=== PATIENT | male | born 1965 | race African-American/Black ===

== ENCOUNTER 2025-04-25 14:14 | Outpatient (REF) | payer MEDICARE, SELFPAY ==
--- OUTSIDE RECORDS SUMMARY | 2025-04-25 15:08 | XMS_ITS | Encounter Summary ---
Author Organization [employer] Address [address] [place] [address] Care Team Providers Care Classified Copy Control Clerk Name Role Phone Name, Rolando LOZANO Primary Care Provider [phone] Encounter Details Date Type Department Care Team (Latest Contact Info) Description 04/25/2025 Travel Social History Tobacco Use Types Packs/Day Years Used Date Smoking Tobacco: Former Cigarettes Passive Smoke Exposure: Past Smokeless Tobacco: Former Alcohol Use Standard Drinks/Week Comments Not Currently 0 (1 standard drink = 0.6 oz pur e alcohol) Depression Answer Date Recorded Patient Health Questionnaire-9 Score 0 04/25/2025 Patient Health Questionnaire-9 Score 0 04/25/2025 Last PHQ-9: Questionnaire Data Not on file 0 04/25/2025 Housing Stability Answer Date Recorded What is your housing situation today? I have myrna robbins 04/25/[address] you li ve. Do you have problems with any of the following? None of the above 04/25/2025 Food Insecurity Answer Date Recorded Within the past 12 months, y ou worried that your food would run out before you got money to buy more: Never True 04/25/2025 Within the past 12 months,th e food you bought just didn't last and you didn't have enough money to get more: Never True Transportation Answer Date Recorded In the past 12 months, has l ack of transportation kept you from medical appts, meetings, work or from getting things needed for daily living? No 04/25/2025 Utilities Answer Date Recorded In the past 12 months, has t he electric, gas, oil or water company threatened to shut off services in your home? No 04/25/2025 Depression Answer Date Recorded Patient Health Questionnaire-2 Score 0 04/25/2025 Internet Access Answer Date Recorded Internet Access Q1 Yes 04/25/2025 Internet Access Q2 Not on file 04/25/2025 Sex and Gender Information Value Date Recorded Sex Assigned at Male 12/17/2024 1:31 PM EDT Legal Sex Male 1:31 PM EDT Gender Identity Male 12/17/2024 1:31 PM EDT Sexual Orientation Straight 04/21/2025 3: 57 PM EDT documented as of this encounter Functional Status * Over the past 2 weeks, how often have you been bothered by any of the following problems? Question Answer Date of Assessment Author Patient Health Questionnaire -2 Score 0 04/25/2025 1:48 PM EDT Stefania Nino MA * Little interest or pleasure in doing things Answer Date of Assessment Author Not at all 04/25/2025 1:48 PM EDT Stefania Styles MA * Feeling down, depressed, or hopeless Answer Date of Assessment Author Not at all 04/25/2025 1:48 PM EDT Stefania Styles MA * Trouble falling or staying asleep, or sleeping too much Answer Date of Assessment Author Not at all 04/25/2025 1:48 PM EDT Stefania Styles MA * Feeling tired or having little energy Answer Date of Assessment Author Not at all 04/25/2025 1:48 PM EDT Stefania Styles MA * Poor appetite or overeating Answer Date of Assessment Author Not at all 04/25/2025 1:48 PM EDT Stefania Styles MA * Feeling bad about yourself - or that you are a failure or have let yourself or your family down Answer Date of Assessment Author Not at all 04/25/2025 1:48 PM EDT Stefania Styles MA * Trouble concentrating on things, such as reading the newspaper or watching television Answer Date of Assessment Author Not at all 04/25/2025 1:48 PM EDT Stefania Styles MA * Moving or speaking so slowly that other people could have noticed? Or the opposite - being so fidgety or restless that you have been moving around a lot more than usual. Answer Date of Assessment Author Not at all 04/25/2025 1:48 PM EDT Stefania Styles MA * Thoughts that you would be better off or hurting yourself in some way Answer Date of Assessment Author Not at all 04/25/2025 1:48 PM EDT Stefania Styles MA * Patient Health Questionnaire-9 Score Answer Date of Assessment Author 0 04/25/2025 1:48 PM EDT Stefania Styles MA * Over the last 2 weeks, how often have you been bothered by any of the following problems? Question Answer Date of Assessment Author Feeling nervous, anxious, or on edge 0 04/25/2025 1:48 PM EDT Stefania Nino MA Not being able to stop or control worrying 0 04/25/2025 1:48 PM EDT Stefania Nino MA Worrying too much about different things 0 04/25/2025 1:48 PM EDT Stefania Nino MA Trouble relaxing 0 04/25/2025 1:48 PM EDT Stefania Johns MA Being so restless that it is hard to sit still 0 04/25/2025 1:48 PM EDT Stefania Nino MA Becoming easily annoyed or irritable 0 04/25/2025 1:48 PM EDT Stefania Nino MA Feeling afraid as if somethi ng awful might happen 0 04/25/2025 1:48 PM EDT Stefania Nino MA OLIVIA-7 Total Score 0 04/25/2025 1:48 PM EDT Stefania Nino MA documented as of this encounter Plan of Treatment Not on file documented as of this encounter Visit Diagnoses Not on filedocumented in this encounter Additional Health Concerns Assessment Noted Time PHQ-9 Depression Total Score: 0 04/25/20 1:48 PM EDT documented as of this encounter Care Teams Classified Copy Control Clerk Relationship Specialty Start Date End Date Name, MD [address] [place] [address] PCP - General Internal Medicine 04/25/25 documented as of this encounter
[2025-04-25 16:15] LABS: MANUAL DIFF FLAG NO
[2025-04-25 16:23] LABS: Hematocrit 40.6 % (42.0-52.0); Hemoglobin 13.3 g/dl (14.0-18.0); Imm Gran Abs Auto 0.01 X10*3/uL (0.00-0.03); Imm Gran Pct Auto 0.2 % (0.0-0.4); Lymphocytes Absolute Auto 2.3 X10*3/uL (1.2-4.9); Mean Corpuscular HGB Conc 32.8 g/dl (31.0-36.0); Mean Corpuscular Hemoglobin 28.8 pg (27.0-33.0); Mean Corpuscular Volume 87.9 fL (80.0-98.0); NRBC Abs Auto 0.000 X10*3/uL (0.0-0.012); NRBC Pct Auto 0.0 /100WBC (0.0-0.2); Platelet Count 214 X10*3/uL (160-400); Red Blood Count 4.62 X10*6/uL (4.60-5.80); White Blood Count 6.0 X10*3/uL (4.8-10.8)
[2025-04-25 16:33] LABS: Appearance Urine Clear; Glucose Urine UA Negative (Negative); Hemoglobin A1C 146.1423 umol/L; PH 8.5 (5.0-9.0); Specific Gravity - Urine 1.020 (1.005-1.025); Total Hemoglobin (HGBA1C) 3535.5602 umol/L
[2025-04-25 16:36] LABS: Alanine Aminotransferase 37 U/L (0-40); Albumin Level 4.3 g/dL (3.5-5.0); Alkaline Phosphatase 72 U/L (39-117); Anion Gap 9 (12-20); Aspartate Amino Transferase 28 U/L (5-37); Blood Urea Nitrogen 9 mg/dL (9-16); Calcium 8.9 mg/dL (8.4-10.2); Carbon Dioxide 28 mmol/L (22-29); Chloride 108 mmol/L (96-108); Estimated Glomerular Filt Rate > 60; Potassium 3.9 mmol/L (3.3-5.1); Sodium 141 mmol/L (135-145); Total Protein 8.4 g/dL (6.5-8.0)
[2025-04-25 17:02] LABS: Prostate Specific Antigen 3.06 ng/mL (<0.05-4.0)
[2025-04-26 08:43] LABS: HBS Num1 54.78 mIU/mL (0-7.99); HBsAGNum1 0.36 S/CO (0.00-0.99); Hepatitis B Surface Antigen Negative (Negative); ~HepC Num1 0.90 S/CO (0.00-0.79); ~Hepatitis B Surface Antibody REACTIVE (Nonreactive)
[2025-04-26 09:37] LABS: ~HepC Num2 0.86; ~HepC Num3 0.89; ~Hepatitis C Antibody GRAYZONE (Nonreactive)
[2025-04-28 16:09] LABS: HCV Log PCR <1.18 NOT DETECTED Log IU/mL (NOT DETECTED); HepC Viral Load <15 NOT DETECTED IU/mL (NOT DETECTED)
[2025-04-29 04:08] LABS: ~Hepatitis A Antibody IgG 0.44 S/CO (0.00-0.99)
== END 2025-04-25 14:15 | disposition home or self-care (01) ==
LOC: HO.HHCL 14:14
PROVIDERS: PCP Internal Medicine Geriatric Medicine; Visit Provider Internal Medicine Geriatric Medicine
DX: M54.41 Lumbago with sciatica, right side (principal); H81.10 Benign paroxysmal vertigo, unspecified ear; R41.3 Other amnesia; G89.29 Other chronic pain; F19.11 Other psychoactive substance abuse, in remission; R35.0 Frequency of micturition; F39 Unspecified mood [affective] disorder; N40.1 Benign prostatic hyperplasia with lower urinary tract symptoms; R35.1 Nocturia; R76.8 Other specified abnormal immunological findings in serum; Z12.5 Encounter for screening for malignant neoplasm of prostate
CPT/HCPCS: 36415; 80053; 81001; 83036; 84153; 85025; 86706; 86708; 86803; 87340; 87522

== ENCOUNTER 2025-08-09 12:00 | Outpatient (REF) | payer MEDICARE, SELFPAY ==
--- NOTE | ~2025-08-09 | XR_ITS ---
EXAMINATION: XR LUMBOSACRAL SPINE WITH OBLIQUES CLINICAL INFORMATION: Years of low back pain with radiation to both legs COMPARISON: None available. TECHNIQUE: AP, lateral and oblique views. FINDINGS: Multilevel small marginal osteophyte formation and endplate sclerosis pronounced at L4-5 and L5-S1. Decreased intervertebral disc height L4-5 and L5-S1. 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 Electronically signed by: Shmuel Jenkins MD 08/09/2025 01:47 PM [facility]
--- NOTE | ~2025-08-09 | XR_ITS ---
EXAMINATION: XR SHOULDER, LEFT CLINICAL INFORMATION: months of left shoulder pain with decreased ROM, no history of trauma COMPARISON: None available. TECHNIQUE: AP external rotation, Grashey, scapular Y, and axillary views of the left shoulder. FINDINGS: Normal bone mineralization. No fracture, dislocation, or suspicious bone lesion. Normal alignment. The glenohumeral joint is normal. The AC joint is normal. There is a type II acromion. No undersurface spurring. The subacromial space is preserved. Remainder of the soft tissue and bony structures appear normal. XR/XR shoulder LT min 2V IMPRESSION: Normal left shoulder. Electronically signed by: Rogerio Yoder MD 08/09/2025 01:30 PM [facility]
== END 2025-08-09 12:01 | disposition home or self-care (01) ==
LOC: HO.HHCX 12:00
PROVIDERS: PCP Internal Medicine Geriatric Medicine; Visit Provider Internal Medicine Geriatric Medicine
DX: G89.29 Other chronic pain (principal); M25.512 Pain in left shoulder; M54.41 Lumbago with sciatica, right side
CPT/HCPCS: 72110; 73030

== ENCOUNTER → 2025-08-09 12:17 | Outpatient (BNV) | payer MEDICARE, SELFPAY | PROVIDERS: PCP Internal Medicine Geriatric Medicine; Visit Provider Radiology Diagnostic Radiology | DX: M54.50 Low back pain, unspecified (principal); M25.512 Pain in left shoulder; M25.612 Stiffness of left shoulder, not elsewhere classified; Z92.3 Personal history of irradiation | CPT/HCPCS: 72110; 73030 ==